=== PATIENT | female | born 1990 | race Caucasian/White ===

== ENCOUNTER 2020-01-10 13:23 | Emergency (ER) | payer SELFPAY ==
[~2020-01-10] VITALS: Ht 152.4 cm; Wt 49.4 kg
[2020-01-10 13:35] VITALS: BP 109/69
[2020-01-10] MEDS ORDERED: Fluorescein Strips RIGHT EYE ONE (13:45)
[2020-01-10] MEDS ORDERED: HYDROcodone/Acetamin 5/325 tab ORAL ONE (13:45)
[2020-01-10] MEDS ORDERED: Tetracaine 0.5% Opth 4ml Soln RIGHT EYE ONE (13:45)
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
--- NOTE | 2020-01-10 14:11 | NUR ---
ED Nurse Note: patient went for CT via wheelchair
--- NOTE | 2020-01-10 14:19 | NUR ---
ED Nurse Note: patient is back, NAD noted
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
[2020-01-10] MEDS ORDERED: CILOXAN 0.3% O1 DROP RIGHT EYE (15:13)
[2020-01-10] MEDS ORDERED: NORCO 5-325 TA1 EAC1 ORAL (15:13)
[2020-01-10 15:21] VITALS: BP 109/69
--- NOTE | 2020-01-10 15:22 | NUR ---
ED Nurse Note: Pt cleared by health care Provider for discharge. DC instructions/prescription was given and explained to pt and verbalized understanding of teachings. All medical deviecs such as ID band removed. Pt is AAO x4, ambulatory and left with all personal belongings.
== END 2020-01-10 15:22 | disposition home or self-care (01) ==
LOC: EMR 14:03
DX: H16.001 Unspecified corneal ulcer, right eye (principal); S05.11XA Contusion of eyeball and orbital tissues, right eye, initial encounter; H11.31 Conjunctival hemorrhage, right eye; Y04.2XXA Assault by strike against or bumped into by another person, initial encounter; Y92.9 Unspecified place or not applicable
CPT/HCPCS: 70486; 99284